=== PATIENT | female | born 1940 | race Caucasian/White ===

== ENCOUNTER 2024-12-24 09:44 | Outpatient (REF) | payer OTHER, SELFPAY ==
--- NOTE | ~2024-12-24 | US_ITS ---
EXAMINATION: BILATERAL CAROTID ULTRASOUND WITH DOPPLER HISTORY: STROKE COMPARISON: There are no prior studies for comparison. TECHNIQUE: Real time and Color and Spectral doppler ultrasonography of the carotid and vertebral arteries was performed in multiple planes. FINDINGS: No significant plaque is seen on the right. There is a small amount of plaque involving the proximal left internal carotid artery. VERTEBRAL FLOW DIRECTION: Antegrade bilaterally. PEAK SYSTOLIC VELOCITIES (in cm/sec): RIGHT: CCA: Prox: 56 Dist: 69 ICA: Prox: 39 Mid: 51 Dist: 68 ICA/CCA Ratio: 0.99 ECA: 116 Peak ICA EDV: 16 LEFT: CCA: Prox: 62 Dist: 62 ICA: Prox: 54 Mid: 61 Dist: 69 ICA/CCA Ratio: 1.11 ECA: 98 Peak ICA EDV: 18 US/US carotid duplex BI IMPRESSION: Normal ultrasound of the right internal carotid artery. Findings consistent with 0-49% stenosis of the left internal carotid artery. Electronically signed by: William Simon MD 12/25/2024 02:01 PM [facility]
--- OUTSIDE RECORDS SUMMARY | 2024-12-24 11:10 | XMS_ITS | Clinical Summary ---
Author Organization [facility] Address [address] [place] [address] Phone Care Team Providers Care Clerk General Office Name Role Phone Jose Manuel Reyes MD Primary Care Provider Allergies Active Allergy Reactions Criticality Noted Date Comments Amoxicillin 09/01/2024 Azithromycin 09/01/2024 Penicillins 09/01/2024 Sulfa (Sulfonamide Antibiotics) Rash 08/21 Medications aspirin 81 mg EC tablet Take 1 tablet (81 mg total) by mouth 1 (one) time each day. Active amLODIPine (NORVASC) 2.5 mg tablet Take by mouth 1 (one) time each day. Active simvastatin (ZOCOR) 10 mg tablet Take 1 tablet (10 mg total) by mouth 1 (one) time each day. Active ASCORBIC ACID, VITAMIN C, ORAL Take by mouth. - Oral Active CRANBERRY ORAL Take by mouth 1 (one) time each day. Active cholecalciferol (VITAMIN D3) 10 mcg/mL (400 unit/mL) liquid Take by mouth 1 (one) time each day. Active polyethylene glycol (PEG) 17 gram/dose oral powder 17 g 1 (one) time each day. Active levothyroxine (SYNTHROID, LEVOTHROID) 88 mcg tablet Active nitrofurantoin (MACRODANTIN) 100 mg capsule Take by mouth 4 (four) times a day. Active Active Problems Problem Noted Date Diagnosed Date Malignant neoplasm of upper- outer quadrant of left breast in female, estrogen receptor positive 09/01/2024 Encounters Date Type Department Care Team Description 12/23/2024 Telephone Breast Care [address] [phone] Dwight De Los Santos MD 12/16/2024 Telephone Breast Care [address] [phone] Dwight De Los Santos MD 12/15/2024 Telephone Breast [address] [address] Dwight De Los Santos MD 11/17/2024 9:22 AM EST - 11/17/2024 11:59 PM EST Hospital Encounter [facility] Ultrasound [address] [place] [phone] Malignant neoplasm of upper-outer quadrant of left breast in female, estrogen receptor positive (CMS/HCC) Discharge Disposition: Home or Self Care 11/17/2024 8:25 AM EST - 11/17/2024 11:59 PM EST Hospital Encounter [facility] at [address] [phone] Malignant neoplasm of upper-outer quadrant of left breast in female, estrogen receptor positive (CMS/HCC) Discharge Disposition: Home or Self Care 10/08/2024 2:00 PM EST Office Visit Breast Care [address] [phone] Dwight De Los Santos MD Malignant neoplasm of upper-outer quadrant of left breast in female, estrogen receptor positive (CMS/HCC) (Primary Dx) from Last 3 Months Surgical History Surgery Date Site/Laterality Comments APPENDECTOMY PROCEDURE: OR APPENDEC INDICATED PURPOSE OTH MAJOR PX NOT SPX; COMMENT: laparotomy for ovarian torsion, incidental appendectomy OTHER SURGICAL HISTORY 07/11/2022 Left PROCEDURE: OR MASTECTOMY PARTIAL; COMMENT: Left breast magnetic seed partial mastectomy 07/11/22 BREAST BIOPSY 10/21/2023 - 10/20/2024 Left Medical History Medical History Date Comments Hypothyroidism DX:Hypothyroidis m Hypercholesteremia DX:Hyperchole steremia GERD (gastroesophageal reflux disease) DX:GERD (gastroesophageal reflux disease) Shingles (herpes zoster) polyneuropathy DX:Shingles (herpes zoster) polyneuropathy Breast cancer (CMS/HCC) 06/2022 Family History Medical History Relation Name Comments Breast cancer Paternal Grandmother Relation Name Status Comments Paternal Grandmother Social History Tobacco Use Types Packs/Day Years Used Date Smoking Tobacco: Never Smokeless Tobacco: Never Comments No Sex and Gender Information Value Date Recorded Sex Assigned at Female 11/13/2024 2:50 PM EST Legal Sex Female 11:56 AM EST Gender Identity Female 11/13/2024 2:50 PM EST Sexual Orientation Not on file Obstetrics History Para Term AB IAB SAB Ectopic Multiple Livin g Live Births 2 Last Filed Vital Signs Vital Sign Reading Time Taken Comments Blood Pressure 140/75 10/08/2024 2:07 PM EST Pulse 71 10/08/2024 2:07 PM EST Temperature 36.1 ??C (97 ??F) 10/08/2024 2:07 PM EST Respiratory Rate - - Oxygen Saturation - - Inhaled Oxygen Concentration - - Weight 59.9 kg (132 lb) 11/17/2024 8:37 AM EST Height 154.9 cm (5' 1 ) 11/17/2024 8:37 AM EST Body Mass Index 24.94 11/17/2024 8:37 AM EST Plan of Treatment Upcoming Encounters Date Type Department Care Team (Late st Contact Info) Description 02/16/2025 8:00 AM EDT Appointment [facility] Ultrasound [address] [place] [address] 02/16/2025 8:30 AM EDT Appointment [facility] at [address] [phone] 04/08/2025 8:20 AM EDT Office Visit Breast Care [facility] [address] [place] [address] Dwight De Los Santos MD [address] [facility] [address] [place] [address] Health Maintenance Due Date Last Done Comments DTaP,Tdap,and Td Vaccines (1 - Tdap) 1961 Pneumococcal Vaccine: 50+ Years (1 of 2 - PCV) 1961 Zoster Vaccines (1 of 2) 1961 RSV Immunization Patients 60+ Years Old (1 - 1-dose 75+ series) 2017 Cholesterol Screening (Lipid Panel) 09/29/2022 Depression Screening 09/29/2022 Falls Risk Assessment 09/29/2022 Medicare Annual Wellness Visit 09/29/2022 Social Influencers of Health Screening 09/29/2022 Hypertension/CHF/CAD Annual BMP Blood Test 11/24/2023 Osteoporosis Screening (Bone Density Screening) 08/23/2032 08/23/2022, 03/07/2018 COVID-19 Vaccine Completed 2024, , 10/10/2021, Additional history exists Influenza Vaccine Completed 2024, , 08/07/2022 HIB Vaccines Aged Out No longer eligi ble based on patient's age to complete this topic HPV Vaccines Aged Out No longer eligi ble based on patient's age to complete this topic Hepatitis A Vaccines Aged Out No long er eligible based on patient's age to complete this topic Hepatitis B Vaccines Aged Out No long er eligible based on patient's age to complete this topic IPV Vaccines Aged Out No longer eligi ble based on patient's age to complete this topic MMR Vaccines Aged Out No longer eligi ble based on patient's age to complete this topic Meningococcal ACWY Vaccine Aged Out N o longer eligible based on patient's age to complete this topic Meningococcal B Vacine Aged Out No lo nger eligible based on patient's age to complete this topic RSV Immunization Patients Under 20 months Aged Out No longer eligible based on patient's age to complete this topic Varicella Vaccines Aged Out No longer eligible based on patient's age to complete this topic Procedures Procedure Name Priority Date/Time Associated Diagnosis Comments MG MAMMO DIGITAL DIAGNOSTIC W BOLIVAR BILAT Routine 11/17/2024 10:10 AM EST Malignant neoplasm of upper-outer quadrant of left breast in female, estrogen receptor positive (CMS/HCC) US BREAST LIMITED LEFT Routine 11/17/2024 10:07 AM EST Malignant neoplasm of upper-outer quadrant of left breast in female, estrogen receptor positive (CMS/HCC) [facility] DEXA AXIAL SKELETON Routine 08/23/2022 12:05 PM EDT Encounter for screening for osteoporosis from Last 3 Months or Most Recently Relevant to Health Maintenance Results * MG Mammo Digital Diagnostic w Bolivar bilat (11/17/2024 10:10 AM EST) Anatomical Region Laterality Modality Breast Bilateral Mammography 11/17/2024 10:0 6 AM EST Impressions 11/17/2024 10:16 AM EST Challenging mammogram with heterogeneous tissue and evidence of previous biopsy and surgery. ?? Abnormal ultrasound in the 12 o'clock position 4 cm from the left nipple. 0.6 cm irregular hypoechoic area of altered echotexture which attenuates sound. ??This area is tender and is more conspicuous than images obtained at the time of previous biopsy. This may or may not correlate to the previous biopsy site. I reviewed the findings and possible management options with the patient. ??We discussed ultrasound-guided biopsy and follow-up imaging in 3 months. ??The patient desires short interval follow-up imaging in 3 months. ??I advised the patient there will be a low threshold for biopsy if there is any suspicious change. A negative mammogram in the presence of a clinically suspicious palpable abnormality does not preclude the possibility of malignancy or alter the indications for biopsy. ASSESSMENT: ?? BI-RADS 3: PROBABLY BENIGN RECOMMENDATION(S): 1: Follow-up diagnostic mammogram and targeted ultrasound of the left breast in 3 months. It is possible that the sonographic finding represents increased conspicuity following biopsy. ??However, the patient reports a change in the clinical breast exam over the previous few weeks. -------- FINAL REPORT -------- Dictated By: Michael Prado Dictated Date: 11/17/2024 10:06 ET Assigned Physician: Michael Prado Reviewed and Electronically Signed By: Michael Prado Signed Date: 11/17/2024 10:16 ET Workstation ID: [id number] Transcribed By: Self Edit Transcribed Date: 11/17/2024 10:06 ET Narrative 11/17/2024 10:16 AM EST EXAM: ??DIAGNOSTIC MAMMOGRAPHY, BILATERAL ULTRASOUND: DIAGNOSTIC ULTRASOUND, UNILATERAL LEFT HISTORY: ??Abnormal clinical breast exam. ??Painful lump 12 o'clock position 4 cm from left nipple. Personal history of left breast cancer post lumpectomy June 2022. The patient describes new onset of pain. ??The patient reports tenderness to palpation by the provider in the 12 o'clock region. The patient underwent ultrasound-guided left breast biopsy with ribbon-shaped biopsy site marker placement which yielded benign results. COMPARISON: ??03/17/2024, 08/08/2023, 02/06/2023, 07/09/2022, 06/18/2022, 06/07/2022, 06/04/2022, 06/02/2021 TECHNIQUE: Synthesized CC and MLO projections of each breast. ??Tomosynthesis of each breast in the CC and MLO projections. ADDITIONAL IMAGING: Craniocaudal view of the left breast exaggerated toward the axilla using Tomosynthesis High-frequency linear transducer ultrasound of the left breast targeted to the area of clinical concern. Computer-aided detection was employed with the iCAD ??profound AI 3-D. TISSUE DENSITY: The breasts are heterogeneously dense, which may obscure small masses. (BI-RADS category C) FINDINGS: MAMMOGRAPHY: RIGHT BREAST: No suspicious mass. No suspicious calcification. No distortion. ?? There are diffuse coarse, round and vascular calcifications. LEFT BREAST: Postoperative changes consistent with previous lumpectomy. ??There are surgical clips in the axilla. ??There is a ribbon-shaped biopsy site marker in the 11 o'clock position. ??There is no suspicious mammographic change in the region of the 11 o'clock biopsy site marker. There are diffuse round, dystrophic and vascular calcifications. ULTRASOUND: LEFT BREAST The patient has tenderness. ??The patient was unable to localize a palpable lump. The patient was examined in the oblique, supine and upright positions. There is an irregular hypoechoic area of altered echotexture which attenuates sound in the 12 o'clock position 4 cm from the left nipple. ??This area was carefully examined. ??The finding is relatively reproducible. ??In some planes there is a suggestion of a linear bright reflector which may correspond to a biopsy site marker. ??When directly compared to images at the time of previous biopsy the finding is more conspicuous/larger Currently the finding measures approximately 0.6 cm. ??There is no abnormal color signal. Procedure Note Michael Prado MD - 11/17/2024 EXAM: DIAGNOSTIC MAMMOGRAPHY, BILATERAL ULTRASOUND: DIAGNOSTIC ULTRASOUND, UNILATERAL LEFT HISTORY: Abnormal clinical breast exam. Painful lump 12 o'clock position4 cm from left nipple. Personal history of left breast cancer post lumpectomy June 2022. The patient describes new onset of pain. The patient reports tendernessto palpation by the provider in the 12 o'clock region. The patient underwent ultrasound-guided left breast biopsy withribbon-shaped biopsy site marker placement which yielded benign results. COMPARISON: 03/17/2024, 08/08/2023, 02/06/2023, 07/09/2022, 06/18/2022,06/07/2022, 06/04/2022, 06/02/2021 TECHNIQUE: Synthesized CC and MLO projections of each breast.Tomosynthesis of each breast in the CC and MLO projections. ADDITIONAL IMAGING: Craniocaudal view of the left breast exaggeratedtoward the axilla using Tomosynthesis High-frequency linear transducer ultrasound of the left breast targeted tothe area of clinical concern. Computer-aided detection was employed with the [employer] 3-D. TISSUE DENSITY: The breasts are heterogeneously dense, which may obscuresmall masses. (BI-RADS category C) FINDINGS: MAMMOGRAPHY: RIGHT BREAST: No suspicious mass. No suspicious calcification. No distortion. Thereare diffuse coarse, round and vascular calcifications. LEFT BREAST: Postoperative changes consistent with previous lumpectomy. There aresurgical clips in the axilla. There is a ribbon-shaped biopsy site markerin the 11 o'clock position. There is no suspicious mammographic change inthe region of the 11 o'clock biopsy site marker. There are diffuse round, dystrophic and vascular calcifications. ULTRASOUND: LEFT BREAST The patient has tenderness. The patient was unable to localize a palpablelump. The patient was examined in the oblique, supine and upright positions. There is an irregular hypoechoic area of altered echotexture whichattenuates sound in the 12 o'clock position 4 cm from the left nipple.This area was carefully examined. The finding is relatively reproducible.In some planes there is a suggestion of a linear bright reflector whichmay correspond to a biopsy site marker. When directly compared to imagesat the time of previous biopsy the finding is more conspicuous/larger Currently the finding measures approximately 0.6 cm. There is no abnormalcolor signal. IMPRESSION: Challenging mammogram with heterogeneous tissue and evidence of previousbiopsy and surgery. Abnormal ultrasound in the 12 o'clock position 4 cm from the leftnipple. 0.6 cm irregular hypoechoic area of altered echotexture which attenuatessound. This area is tender and is more conspicuous than images obtainedat the time of previous biopsy. This may or may not correlate to the previous biopsy site. I reviewed the findings and possible management options with the patient.We discussed ultrasound-guided biopsy and follow-up imaging in 3 months.The patient desires short interval follow-up imaging in 3 months. Iadvised the patient there will be a low threshold for biopsy if there isany suspicious change. A negative mammogram in the presence of a clinically suspicious palpableabnormality does not preclude the possibility of malignancy or alter theindications for biopsy. ASSESSMENT: BI-RADS 3: PROBABLY BENIGN RECOMMENDATION(S): 1: Follow-up diagnostic mammogram and targeted ultrasound of the leftbreast in 3 months. It is possible that the sonographic finding represents increasedconspicuity following biopsy. However, the patient reports a change inthe clinical breast exam over the previous few weeks. -------- FINAL REPORT -------- Dictated By: Michael Prado Dictated Date: 11/17/2024 10:06 ET Assigned Physician: Michael Prado Reviewed and Electronically Signed By: Michael Prdao Signed Date: 11/17/2024 10:16 ET Workstation ID: [id number] Transcribed By: Self Edit Transcribed Date: 11/17/2024 10:06 ET us Dwight De Los Santos MD IMG BI PROCEDURES Final Result * US Breast Limited Left (11/17/2024 10:07 AM EST) Anatomical Region Laterality Modality Breast Left Ultrasound 11/17/2024 10:0 6 AM EST Impressions 11/17/2024 10:16 AM EST Challenging mammogram with heterogeneous tissue and evidence of previous biopsy and surgery. ?? Abnormal ultrasound in the 12 o'clock position 4 cm from the left nipple. 0.6 cm irregular hypoechoic area of altered echotexture which attenuates sound. ??This area is tender and is more conspicuous than images obtained at the time of previous biopsy. This may or may not correlate to the previous biopsy site. I reviewed the findings and possible management options with the patient. ??We discussed ultrasound-guided biopsy and follow-up imaging in 3 months. ??The patient desires short interval follow-up imaging in 3 months. ??I advised the patient there will be a low threshold for biopsy if there is any suspicious change. A negative mammogram in the presence of a clinically suspicious palpable abnormality does not preclude the possibility of malignancy or alter the indications for biopsy. ASSESSMENT: ?? BI-RADS 3: PROBABLY BENIGN RECOMMENDATION(S): 1: Follow-up diagnostic mammogram and targeted ultrasound of the left breast in 3 months. It is possible that the sonographic finding represents increased conspicuity following biopsy. ??However, the patient reports a change in the clinical breast exam over the previous few weeks. -------- FINAL REPORT -------- Dictated By: Michael Prado Dictated Date: 11/17/2024 10:06 ET Assigned Physician: Michael Prado Reviewed and Electronically Signed By: Michael Prado Signed Date: 11/17/2024 10:16 ET Workstation ID: [id number] Transcribed By: Self Edit Transcribed Date: 11/17/2024 10:06 ET Narrative 11/17/2024 10:16 AM EST EXAM: ??DIAGNOSTIC MAMMOGRAPHY, BILATERAL ULTRASOUND: DIAGNOSTIC ULTRASOUND, UNILATERAL LEFT HISTORY: ??Abnormal clinical breast exam. ??Painful lump 12 o'clock position 4 cm from left nipple. Personal history of left breast cancer post lumpectomy June 2022. The patient describes new onset of pain. ??The patient reports tenderness to palpation by the provider in the 12 o'clock region. The patient underwent ultrasound-guided left breast biopsy with ribbon-shaped biopsy site marker placement which yielded benign results. COMPARISON: ??03/17/2024, 08/08/2023, 02/06/2023, 07/09/2022, 06/18/2022, 06/07/2022, 06/04/2022, 06/02/2021 TECHNIQUE: Synthesized CC and MLO projections of each breast. ??Tomosynthesis of each breast in the CC and MLO projections. ADDITIONAL IMAGING: Craniocaudal view of the left breast exaggerated toward the axilla using Tomosynthesis High-frequency linear transducer ultrasound of the left breast targeted to the area of clinical concern. Computer-aided detection was employed with the iCAD ??profound AI 3-D. TISSUE DENSITY: The breasts are heterogeneously dense, which may obscure small masses. (BI-RADS category C) FINDINGS: MAMMOGRAPHY: RIGHT BREAST: No suspicious mass. No suspicious calcification. No distortion. ?? There are diffuse coarse, round and vascular calcifications. LEFT BREAST: Postoperative changes consistent with previous lumpectomy. ??There are surgical clips in the axilla. ??There is a ribbon-shaped biopsy site marker in the 11 o'clock position. ??There is no suspicious mammographic change in the region of the 11 o'clock biopsy site marker. There are diffuse round, dystrophic and vascular calcifications. ULTRASOUND: LEFT BREAST The patient has tenderness. ??The patient was unable to localize a palpable lump. The patient was examined in the oblique, supine and upright positions. There is an irregular hypoechoic area of altered echotexture which attenuates sound in the 12 o'clock position 4 cm from the left nipple. ??This area was carefully examined. ??The finding is relatively reproducible. ??In some planes there is a suggestion of a linear bright reflector which may correspond to a biopsy site marker. ??When directly compared to images at the time of previous biopsy the finding is more conspicuous/larger Currently the finding measures approximately 0.6 cm. ??There is no abnormal color signal. Procedure Note Michael Prado MD - 11/17/2024 EXAM: DIAGNOSTIC MAMMOGRAPHY, BILATERAL ULTRASOUND: DIAGNOSTIC ULTRASOUND, UNILATERAL LEFT HISTORY: Abnormal clinical breast exam. Painful lump 12 o'clock position4 cm from left nipple. Personal history of left breast cancer post lumpectomy June 2022. The patient describes new onset of pain. The patient reports tendernessto palpation by the provider in the 12 o'clock region. The patient underwent ultrasound-guided left breast biopsy withribbon-shaped biopsy site marker placement which yielded benign results. COMPARISON: 03/17/2024, 08/08/2023, 02/06/2023, 07/09/2022, 06/18/2022,06/07/2022, 06/04/2022, 06/02/2021 TECHNIQUE: Synthesized CC and MLO projections of each breast.Tomosynthesis of each breast in the CC and MLO projections. ADDITIONAL IMAGING: Craniocaudal view of the left breast exaggeratedtoward the axilla using Tomosynthesis High-frequency linear transducer ultrasound of the left breast targeted tothe area of clinical concern. Computer-aided detection was employed with the [employer] 3-D. TISSUE DENSITY: The breasts are heterogeneously dense, which may obscuresmall masses. (BI-RADS category C) FINDINGS: MAMMOGRAPHY: RIGHT BREAST: No suspicious mass. No suspicious calcification. No distortion. Thereare diffuse coarse, round and vascular calcifications. LEFT BREAST: Postoperative changes consistent with previous lumpectomy. There aresurgical clips in the axilla. There is a ribbon-shaped biopsy site markerin the 11 o'clock position. There is no suspicious mammographic change inthe region of the 11 o'clock biopsy site marker. There are diffuse round, dystrophic and vascular calcifications. ULTRASOUND: LEFT BREAST The patient has tenderness. The patient was unable to localize a palpablelump. The patient was examined in the oblique, supine and upright positions. There is an irregular hypoechoic area of altered echotexture whichattenuates sound in the 12 o'clock position 4 cm from the left nipple.This area was carefully examined. The finding is relatively reproducible.In some planes there is a suggestion of a linear bright reflector whichmay correspond to a biopsy site marker. When directly compared to imagesat the time of previous biopsy the finding is more conspicuous/larger Currently the finding measures approximately 0.6 cm. There is no abnormalcolor signal. IMPRESSION: Challenging mammogram with heterogeneous tissue and evidence of previousbiopsy and surgery. Abnormal ultrasound in the 12 o'clock position 4 cm from the leftnipple. 0.6 cm irregular hypoechoic area of altered echotexture which attenuatessound. This area is tender and is more conspicuous than images obtainedat the time of previous biopsy. This may or may not correlate to the previous biopsy site. I reviewed the findings and possible management options with the patient.We discussed ultrasound-guided biopsy and follow-up imaging in 3 months.The patient desires short interval follow-up imaging in 3 months. Iadvised the patient there will be a low threshold for biopsy if there isany suspicious change. A negative mammogram in the presence of a clinically suspicious palpableabnormality does not preclude the possibility of malignancy or alter theindications for biopsy. ASSESSMENT: BI-RADS 3: PROBABLY BENIGN RECOMMENDATION(S): 1: Follow-up diagnostic mammogram and targeted ultrasound of the leftbreast in 3 months. It is possible that the sonographic finding represents increasedconspicuity following biopsy. However, the patient reports a change inthe clinical breast exam over the previous few weeks. -------- FINAL REPORT -------- Dictated By: Michael Prado Dictated Date: 11/17/2024 10:06 ET Assigned Physician: Michael Prado Reviewed and Electronically Signed By: Michael Prado Signed Date: 11/17/2024 10:16 ET Workstation ID: [id number] Transcribed By: Self Edit Transcribed Date: 11/17/2024 10:06 ET us Dwight De Los Santos MD IMG US PROCEDURES Final Result * LISAN[facility]O DEXA AXIAL SKELETON (08/23/2022 12:05 PM EDT) Anatomical Region Laterality Modality Mammography 08/23/2022 11:0 3 AM EDT Narrative 08/23/2022 12:[address] [facility] Diagnostic Imaging Department [address] [place], [place] [id number] Patient: ??KALLIEJACKIE Eldridge ?/Age/Sex: 1940 - Unit#: ??[id number] ? Location/Status: ??SPDIMAM/REG CLI ? Mnemonic/Ordering Site: ??MAMDEXAAX/SPMAM Ordering Physician: ??TIM WALLACE MD Lisandro Dexa Axial Skeleton - 08/23/22 - 1145 HISTORY: ??The patient is a 81-year-old postmenopausal female with clinical concern for metabolic bone disease. FINDINGS: ??Dual energy x-ray absorptiometry of the lumbar spine and femurs is performed. The mean bone mineral density at L1-2 is 1.024 gm/cm2 which is 88% of that of young normals and 111% of that of age matched controls. This yields a T- score of -1.2 and a Z-score of 0.9 which is diagnostic of osteopenia. The mean bone mineral density of the femurs bilaterally is 0.890 gm/cm2 which is 88% of that of young normals and 121% of that of age matched controls. ??This yields a T-score of -0.9 and a Z-score of 1.2 and there is therefore no evidence of osteoporosis or osteopenia here. ??However, the T-score of the right femoral neck is -1.8 and that of the left femoral neck is -1.8 which is diagnostic of osteopenia. IMPRESSION: 1. Osteopenia. ??There has been an increase of 4.3% in bone mineral density in the lumbar spine since the prior examination of 03/07/2018. ??There has been an increase of 0.6% in bone mineral density in the right femur and a decrease of 3.3% in bone mineral density in the left femur. 2. FRAX analysis yields a 10-year probability of major osteoporotic fracture of 14.9% and a 10-year probability of hip fracture of 4.0%. Code 80729 Dictating Physician: ??DONELL VILLATORO MD Electronically Signed by: ??DONELL VILLATORO MD Dic Date/Time: ??08/23/22 1202 Sign date/Time: ??08/23/22 1205 Procedure Note Donell Villatoro MD - 11/22/2023 [facility] Diagnostic Imaging Department [address] [place] [address] Patient: JACKIE NAVA Jazmyn Barr/Age/Sex: 1940 - 81 - F Unit#: [id number] Location/Status: SPDIMAM/REG CLI Mnemonic[facility] Ordering Physician: TIM WALLACE MD Lisandro Dexa Axial Skeleton - 08/23/221144 HISTORY: The patient is a 81-year-old postmenopausal female withclinical concern for metabolic bone disease. FINDINGS: Dual energy x-ray absorptiometry of the lumbar spine and femursis performed. The mean bone mineral density at L1-2 is 1.024 gm/cm2 which is88% of that of young normals and 111% of that of age matched controls. Thisyields a T- score of -1.2 and a Z-score of 0.9 which is diagnostic of osteopenia. The mean bone mineral density of the femurs bilaterally is 0.890 gm/jk9vhwuz is 88% of that of young normals and 121% of that of age matched controls.This yields a T-score of -0.9 and a Z-score of 1.2 and there is therefore noevidence of osteoporosis or osteopenia here. However, the T-score of the rightfemoral neck is -1.8 and that of the left femoral neck is -1.8 which is diagnosticof osteopenia. IMPRESSION: 1. Osteopenia. There has been an increase of 4.3% in bone mineral densityin the lumbar spine since the prior examination of 03/07/2018. There has beenan increase of 0.6% in bone mineral density in the right femur and a decreaseof 3.3% in bone mineral density in the left femur. 2. FRAX analysis yields a 10-year probability of major osteoporoticfracture of 14.9% and a 10-year probability of hip fracture of 4.0%. Code 16956 Dictating Physician: DONELL VILLATORO MD Electronically Signed by: DONELL VILLATORO MD Dic Date/Time: 08/23/22 1202 Sign date/Time: 08/23/22 1205 Subramony Howie JOE IMG BI PROCEDURES F inal Result from Last 3 Months or Most Recently Relevant to Health Maintenance [place] [place] [address] [employer] MEDICARE Advance Directives Documents on File Type Date Recorded Patient Solutions Sales Consultant Expl anation Health Care Decision (hx) 07/12/2022 AD GONGORA DIRECTIVE Health Care Decision (hx) 07/12/2022 AD GONGORA DIRECTIVE Health Care Decision (hx) 07/12/2022 AD GONGORA DIRECTIVE Health Care Decision (hx) 07/12/2022 AD GONGORA DIRECTIVE Health Care Decision (hx) 07/12/2022 AD GONGORA DIRECTIVE Health Care Decision (hx) 07/12/2022 AD GONGORA DIRECTIVE Health Care Decision (hx) 07/12/2022 AD GONGORA DIRECTIVE Health Care Decision (hx) 07/12/2022 AD GONGORA DIRECTIVE Health Care Decision (hx) 07/12/2022 AD GONGORA DIRECTIVE Health Care Decision (hx) 07/12/2022 AD GONGORA DIRECTIVE Health Care Decision (hx) 07/12/2022 AD GONGORA DIRECTIVE Health Care Decision (hx) 07/12/2022 AD GONGORA DIRECTIVE Health Care Decision (hx) 07/12/2022 AD GONGORA DIRECTIVE Care Teams Clerk General Office Relationship Specialty Start Date End Date Jose Manuel Reyes MD [address] [place] [address] Dr [address] [place] [address] PCP - General Clearing Tub Worker 07/06/22
--- OUTSIDE RECORDS SUMMARY | 2024-12-24 11:10 | XMS_ITS | Encounter Summary ---
Author Organization [facility] Address [address] [place] [address] Care Team Providers Care Legal Document Specialist Name Role Phone Jose Manuel Reyes MD Primary Care Provider Encounter Details Date Type Department Care Team (Late Contact Info) Description 12/15/2024 Telephone Breast Care [address] [phone] Dwight De Los Santos MD [address] [place] [address] Social History Tobacco Use Types Packs/Day Years Used Date Smoking Tobacco: Never Smokeless Tobacco: Never Comments No Sex and Gender Information Value Date Recorded Sex Assigned at Female 11/13/2024 2:50 PM EST Legal Sex Female 11:56 AM EST Gender Identity Female 11/13/2024 2:50 PM EST Sexual Orientation Not on file documented as of this encounter Plan of Treatment Upcoming Encounters Date Type Department Care Team (Late Contact Info) Description 02/16/2025 8:00 AM EDT Appointment [facility] Ultrasound [address] [place] [phone] 02/16/2025 8:30 AM EDT [facility]ointment [facility] [address] [place] [address] [phone] 04/08/2025 8:20 AM EDT Office Visit Breast [address] [phone] Dwight De Los Santos MD [address] [place] [address] [address] [place] [address] documented as of this encounter Visit Diagnoses Not on filedocumented in this encounter Care Teams Legal Document Specialist Relationship Specialty Start Date End Date Jose Manuel Reyes MD [address] [place] [address] [address] [place] [address] PCP - General Child Support Agent 07/06/22 documented as of this encounter
--- OUTSIDE RECORDS SUMMARY | 2024-12-24 11:10 | XMS_ITS | Clinical Summary ---
Author Organization [facility] Address [address] [place] [address] Care Team Providers Care Bobbin Cleaner Hand Name Role Phone Jose Manuel Reyes MD Primary Care Provider [phone] Allergies Active Allergy Reactions Criticality Noted Date Comments Amoxicillin 07/26/2022 Codeine 07/26/2022 Sulfa Antibiotics 07/26/2022 Medications Medication Sig Dispensed Refills Start Date End Date Status simvastatin (ZOCOR) tablet 10 mg Take 1 tablet (10 mg total) by mouth daily. as directed 0 05/09/2022 Active levothyroxine (SYNTHROID) tablet 88 mcg 0 12/28/2016 Active amLODIPine (NORVASC) tablet 2.5 mg Take 1 tablet (2.5 mg total) by mouth daily. 0 Active atorvastatin (LIPITOR) tablet 80 mg Take 1 tablet (80 mg total) by mouth daily. 0 Active aspirin EC 81 MG tablet Take 1 tablet (81 mg total) by mouth daily. 0 Active Active Problems Problem Noted Date Diagnosed Date Thalamic stroke 01/31/2023 Hypercholesterolemia 01/31/2023 Essential hypertension 01/31/2023 Osteopenia of multiple sites 07/27/2022 Malignant neoplasm of upper- outer quadrant of left breast in female, estrogen receptor positive 06/26/2022 Family History Medical History Relation Name Comments Stroke Father Cancer Paternal Grandmother breast Relation Name Status Comments Father Paternal Grandmother Social History Tobacco Use Types Packs/Day Years Used Date Smoking Tobacco: Never Smokeless Tobacco: Never Alcohol Use Standard Drinks/Week Comments Yes 1 (1 standard drink = 0.6 oz pur e alcohol) Sex and Gender Information Value Date Recorded Sex Assigned at Female 07/17/2022 9:48 AM EDT Gender Identity Not on file Sexual Orientation Not on file Job Start Date Occupation Industry Not on file Not on file Not on file Last Filed Vital Signs Vital Sign Reading Time Taken Comments Blood Pressure 138/63 01/31/2023 9:00 AM EDT Pulse 74 01/31/2023 9:00 AM EDT Temperature 37.2 ??C (99 ??F) 01/31/2023 9:00 AM EDT Respiratory Rate - - Oxygen Saturation 100% 01/31/2023 9:00 AM EDT Inhaled Oxygen Concentration - - Weight 60.9 kg (134 lb 3.2 oz) 01/31/2023 9:00 A M EDT Height 154.9 cm (5' 1 ) 01/31/2023 9:00 AM EDT Body Mass Index 25.36 01/31/2023 9:00 AM EDT Plan of Treatment Health Maintenance Due Date Last Done Comments COVID-19 Vaccine (#1) 1945 Pneumococcal Vaccine (1 of 2 - PCV) 1948 Depression Screening 1954 Preventative Health Evaluation 1960 DTap / Tdap / Td (1 - Tdap) 1961 Shingrix-Zoster Vaccine (1 of 2) 1961 Fall Risk Assessment 2007 Osteoporosis Screening (DEXA Scan) 2007 RSV Adult > 60+ Yrs or Pregn ant (1 - 1-dose 75+ series) 2017 Influenza Vaccine (#1) 2024 Hepatitis B Vaccines Aged Out No long er eligible based on patient's age to complete this topic RSV Ped < 20 months Aged Out No longe r eligible based on patient's age to complete this topic Care Teams Bobbin Cleaner Hand Relationship Specialty Start Date End Date Jose Manuel Reyes MD [address] [place] [address] DR MARTIN [address] [place] [address] PCP - General Accounting Technician 07/06/22
--- OUTSIDE RECORDS SUMMARY | 2024-12-24 11:10 | XMS_ITS | Continuity of Care Document ---
Author Organization [facility] Address [address] [place] [address] Phone [phone] Care Team Providers Care Residential Door Unit Installer Name Role Phone Jose Manuel Reyes M.D. Care Team Information Rece iver [phone] Fareed Figueroa Care Team Information Receive r [phone] Problems Active Problems Provider Date Osteoarthritis Jose Manuel Reyes M.D. Onset: 12/2021 Hypothyroidism Jose Manuel Reyes M.D. Onset: 12/2021 Irritable bowel syndrome Jose Manuel Reyes M.D. O nset: 07/23/2022 Hypercholesterolemia Jose Manuel Reyes M.D. Onset : 07/23/2022 Carcinoma of breast Jose Manuel Reyes M.D. 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 Onset: 07/23/2022 Dizziness Jose Manuel Reyes M.D. Onset: Essential hypertension Jose Manuel Reyes M.D. Ons et: 11/05/2022 Cerebrovascular accident Jose Manuel Reyes M.D. O nset: 03/07/2023 Social History Type Date Description Comments Sex Unknown Lives With Alone ETOH Use Occasionally consumes alcoho l Tobacco Use Start: Unknown Patient has never smoked Smoking Status Reviewed: 08/09/23 Patient has never sm oked Allergies and adverse reactions Active Allergies Criticality Reaction Severity Comments Date Codeine Unable to assess criticality 03/07/2023 Sulfamethoxazole Unable to assess criticality 03/07/2023 Amoxicillin Unable to assess criticality 03/07/2023 Medications Active Medications SIG Qnty Indications Order ing Provider Date Atorvastatin [id number] Tablets 1 tab by mouth every day 90jayson Loco M.D. 07/30/[address] 1 by mouth every day Jose Manuel Reyes M.D. 03/07/2023 Amlodipine Besylate2.5mg Tablets Take 1 Tablet By Mouth Every Day 90jayson Reyes M.D. 01/30/2023 Levothyroxine [id number] Tablets Take 1 Tablet By Mouth Every Day as Directed 90jayson Reyes M.D. [id number] Capsules 1 by mouth every day Unknown Vital Signs Date Vital Result Comment 07/06/2024 3:28pm BP Systolic 130 mmHg BP Diastolic 80 mmHg Heart Rate 76 /min Height 62 inches 5'2 Weight 131.50 lb BMI (Body Mass Index) 24.0 kg/m2 Results Test Acquired Date Facility Test Result H/L Range Note Laboratory test finding 08/03/2024 [facility] Ast (Sgot) 36 IU/L 0-40 Alt (SGPT) 31 IU/L 0-32 Lipid Panel 08/03/2024 [facility] Cholesterol, Total 172 mg/dL 100-199 Triglycerides 138 mg/dL 0-149 HDL Cholesterol 48 mg/dL >39 VLDL Cholestero l Tucker 24 mg/dL 5-40 LDL Chol Calc (Nih) 100 mg/dL High 0-99 LDL Calc Comment: TNP Laboratory test finding 08/03/2024 [facility] TSH 2.560 uIU/mL 0.450-4 .500 Thyroxine (T4) Free, Direct 1.81 ng/dL High 0.82-1. 77 Comp. Metabolic Panel (14) 01/29/2024 [facility] Glucose 104 mg/dL High 70-99 BUN 15 mg/dL 8-27 Creatinine 0.84 mg/dL 0.57-1. 00 eGFR 70 mL/min/1. 73 >59 BUN/Creatinine Ratio 18 12-28 Sodium 138 mmol/L 134-144 Potassium 4.6 mmol/L 3.5-5.2 Chloride 101 mmol/L 96-106 Carbon Dioxide, Total 24 mmol/L 20-29 Calcium 8.8 mg/dL 8.7-10. 3 Protein, Total 6.3 g/dL 6.0-8.5 Albumin 4.0 g/dL 3.7-4.7 Globulin, Total 2.3 g/dL 1.5-4.5 A/G Ratio 1.7 1.2-2.2 Bilirubin, Total 0.6 mg/dL 0.0-1 .2 Alkaline Phosphatase 87 IU/L 44-121 Ast (Sgot) 54 IU/L High 0-40 Alt (SGPT) 56 IU/L High 0-32 Lipid Panel 01/29/2024 [facility] Cholesterol, Total 159 mg/dL 100-199 Triglycerides 115 mg/dL 0-149 HDL Cholesterol 49 mg/dL >39 VLDL Cholestero l Tucker 21 mg/dL 5-40 LDL Chol Calc (Nih) 89 mg/dL 0-99 Comment: TNP CBC With Differential/Per telet 01/29/2024 [facility] WBC 8.1 x10E3/uL 3.4-10. 8 RBC 4.69 x10E6/uL 3.77-5. 28 Hemoglobin 14.8 g/dL 11.1-15 .9 Hematocrit 44.1 % 34.0-46 .6 MCV 94 fL 79-97 MCH 31.6 pg 26.6-33 .0 MCHC 33.6 g/dL 31.5-35 .7 RDW 12.4 % 11.7-15 .4 Platelets 286 x10E3/uL 150-450 Neutrophils 56 % Not Estab. Lymphs 29 % Not Estab. Monocytes 8 % Not Estab. Eos 5 % Not Estab. Basos 1 % Not Estab. Immature Cells TNP Neutrophils (Absolute) 4.5 x10E3/uL 1.4-7.0 Lymphs (Absolute) 2.4 x10E3/uL 0.7-3.1 Monocytes(Absol u te) 0.7 x10E3/uL 0.1-0.9 Eos (Absolute) 0.4 x10E3/uL 0.0-0.4 Baso (Absolute) 0.1 x10E3/uL 0.0-0.2 Immature Granulocytes 1 % Not Estab. Immature Grans (Abs) 0.0 x10E3/uL 0.0-0.1 NRBC TNP Hematology Comments: TNP TSH+Free T4 01/29/2024 [facility] TSH 2.620 uIU/mL 0.450-4 .500 T4,Free(Direct) 1.94 ng/dL High 0.82-1. 77 Culture Urine 12/02/2023 [facility] Specimen Description CLEAN CATCH (URI <SEE NOTE> 1 Special Requests NONE Culture >100,000 COL/ML <SEE NOTE> Abnormal 2 Report Status FINAL 4 3 Comprehensive Metabolic Panl 07/25/2023 [facility] Glucose 107 mg/dL High (70-99) BUN 14 mg/dL (8-23) Creatinine 0.8 mg/dL (0.5-1. 0) Sodium 136 mmol/L (133-14 5) Potassium 4.4 mmol/L (3.6-5. 2) Chloride 101 mmol/L (98-107 ) Bicarbonate 27 mmol/L (22-29) Anion Gap 8 (4-17) Albumin 4.1 GM/DL (3.4-4. 8) Calcium 8.9 mg/dL (8.6-10 .5) Bilirubin,Total 0.7 mg/dL (0-1.2 ) Total Protein 6.4 GM/DL (6.2-8. 2) Ag Ratio 1.8 Ast 22 U/L (0-32) Alk Phos 100 U/L (35-104 ) Alt 17 U/L (0-33) Estimated GFR Creatinine 70 ML/MIN/1. 73M2 4 Lipid Panel 07/25/2023 [facility] Cholesterol, Total 147 mg/dL (<200) Triglyceride 108 mg/dL (<150) HDL Chol 47 mg/dL (>39) LDL Cholesterol , Calculated 78 mg/dL (0-130) Non HDL Cholesterol (Calc) 100 mg/dL (<160) Complete Abc With Diff 07/25/2023 [facility] WBC 8.3 K/MM3 (4.0-11 .0) RBC 4.33 M/MM3 (4.20-5 .40) HGB 13.5 GM/DL (11.7-1 5.5) HCT 41.6 % (35.7-4 5.8) MCV 96.1 FL (80.0-1 00.0) MCH 31.2 pg (27.0-3 4.0) MCHC 32.5 g/dL Low (33.0-3 7.0) PLT 257 K/MM3 (150-46 0) RDW-SD 45.6 FL (<47.0) MPV 11.0 FL (9.4-12 .4) Automated NRBC 0.0 #/100WBC' S Abs. NRBC 0.0 K/MM3 Neut # 4.9 K/MM3 (1.3-7. 0) Lymph # 2.1 K/MM3 (0.8-3. 1) Broome# 0.8 K/MM3 (0.4-0. 9) Eo # 0.5 K/MM3 High (0.0-0. 4) Baso # 0.1 K/MM3 (0.0-0. 1) Abs. Imm Gran 0.0 K/MM3 Neut 58.4 % (44-76) Lymph 24.9 % (15-43) Monocyte 9.4 % (4.5-10 .5) Eo 5.7 % (0-6) Baso 1.2 % (0-2) Imm Gran 0.4 % Laboratory test finding 07/25/2023 [facility] TSH With Reflex To FT4 2.13 uIU/mL (0.4-4. 2) Comprehensive Metabolic Panl 07/17/2022 [facility] Glucose 102 mg/dL High (70-99) BUN 16 mg/dL (8-23) Creatinine 0.9 mg/dL (0.5-1. 0) Sodium 139 mmol/L (133-14 5) Potassium 4.4 mmol/L (3.6-5. 2) Chloride 101 mmol/L (98-107 ) Bicarbonate 27 mmol/L (22-29) Anion Gap 11 (4-17) Albumin 4.2 GM/DL (3.4-4. 8) Calcium 9.0 mg/dL (8.6-10 .5) Bilirubin,Total 0.5 mg/dL (0-1.2 ) Total Protein 6.4 GM/DL (6.2-8. 2) Ag Ratio 1.9 Ast 14 U/L (0-32) Alk Phos 80 U/L (35-104 ) Alt 9 U/L (0-33) Estimated GFR Creatinine 69 ML/MIN/1. 73M2 5 Lipid Panel 07/17/2022 [facility] Cholesterol, Total 204 mg/dL High (<200) Triglyceride 143 mg/dL (<150) HDL Chol 53 mg/dL (>39) LDL Cholesterol , Calculated 122 mg/dL (0-130) Non HDL Cholesterol (Calc) 151 mg/dL (<160) Laboratory test finding 07/17/2022 [facility] TSH 3.91 uIU/mL (0.4-4. 2) 1 CLEAN CATCH (URINE) 2 the [employer] [address] system 3 ORGANISM >100,000 CO L/ML ESCHERICHIA COLI These AST results were performed on the [employer] 2 ID and AST system METHOD MIN. INHIB. CONC. (MCG/ML) AMPICILLIN SUSCEPTIBLE AMPICILLIN/SULBACTAM SUSCEPTIBLE CEFAZOLIN SUSCEPTIBLE CEFEPIME SUSCEPTIBLE CEFTRIAXONE SUSCEPTIBLE CIPROFLOXACIN RESISTANT ERTAPENEM SUSCEPTIBLE GENTAMICIN SUSCEPTIBLE LEVOFLOXACIN RESISTANT NITROFURANTOIN SUSCEPTIBLE PIPERACILLIN/TAZOBAC SUSCEPTIBLE TRIMETH/SULFAMETHOX SUSCEPTIBLE 4 Creatinine based est imated glomerular filtration (eGFR) in adults is calculated using the National [employer] recommended 2020 CKD-EPI equation. Estimates GFR from serum creatinine, age and sex. 5 Creatinine based est imated glomerular filtration (eGFR) in adults is calculated using the National [employer] recommended 2020 CKD-EPI equation. Estimates GFR from serum creatinine, age and sex. Medical Devices Description No Information Available Encounters Type Date Location Provider Dx Diagnosis Office Visit 07/06/2024 3:15p Main Office SUE Brenner E03.9 Hypothyroidis m, unspecified I10 Essential (primary) hypertension C50.912 Malignant neoplasm o f unspecified site of left female breast K58.9 Irritable bowel synd jin without diarrhea I63.9 Cerebral infarction, unspecified E78.00 Pure hypercholestero lemia, unspecified R94.5 Abnormal results of liver function studies Assessments Date Code Description Provider 07/06/2024 E03.9 Hypothyroidism, unspecified SUE Brenner 07/06/2024 I10 Essential (primary) hyperten jessica SUE Brenner 07/06/2024 C50.912 Carcinoma of breast SUE Diaz 07/06/2024 K58.9 Irritable bowel syndrome SUE Carrington 07/06/2024 I63.9 Cerebrovascular accident SUE Carrington 07/06/2024 E78.00 Hypercholesterolemia SUE Brenner 07/06/2024 R94.5 Abnormal results of liver fu nction studies SUE Brenner Plan of Treatment Future Appointment(s):* 01/12/2025 9:15 am - SUE Brenner at Main Office 07/06/2024 - SUE Brenner* E03.9 Hypothyroidism, unspecified * I10 Essential (primary) hypertension * C50.912 Carcinoma of breast * K58.9 Irritable bowel syndrome * I63.9 Cerebrovascular accident * E78.00 Hypercholesterolemia * R94.5 Abnormal results of liver function studies Functional Status Description No Information Available Mental Status Description No Information Available Referrals Refer to Reason for Referral Status Appt Reinier Lovell MD COLONOSCOPY DUE ON 09/06/2022 Rev iewed Complete 09/06/[address] [place] [address] [address] [place] [address] [phone]
--- OUTSIDE RECORDS SUMMARY | 2024-12-24 11:10 | XMS_ITS | Encounter Summary ---
Author Organization [facility] Address [address] [place] [address] Care Team Providers Care Infrastructure Administrator Name Role Phone Jose Manuel Reyes MD Primary Care Provider Encounter Details Date Type Department Care Team (Late st Contact Info) Description 12/16/2024 Telephone [facility] [place] [address] [place] [address] Dwight De Los Santos MD [address] [place], [place] [id number] Social History Tobacco Use Types Packs/Day Years Used Date Smoking Tobacco: Never Smokeless Tobacco: Never Comments No Sex and Gender Information Value Date Recorded Sex Assigned at Female 11/13/2024 2:50 PM EST Legal Sex Female 11:56 AM EST Gender Identity Female 11/13/2024 2:50 PM EST Sexual Orientation Not on file documented as of this encounter Progress Notes * Venkatesh Stone - 12/23/2024 3:18 PM EST Called patients PCP regarding an insurance referral to be back dated to a previous appointment where patient was charged a significant amount for appointment when should have been covered by insurance. * Venkatesh Stone - 12/16/2024 9:10 AM EST Spoke with patient PCP regarding an insurance referral for 10.08.24. will be attached to patients appointment once received. documented in this encounter Plan of Treatment Upcoming Encounters Date Type Department Care Team (Late st Contact Info) Description 02/16/2025 8:00 AM EDT Appointment [facility] Ultrasound [address] [place] [address] 02/16/2025 8:30 AM EDT Appointment [facility] [address] [place] [address] 04/08/2025 8:20 AM EDT Office Visit [facility] [address] [place] [address] Dwight De Los Santos MD [address] [place] [address] documented as of this encounter Visit Diagnoses Not on filedocumented in this encounter Care Teams Infrastructure Administrator Relationship Specialty Start Date End Date Jose Manuel Reyes MD [address] [place] [address] [address] [place] [address] PCP - General Fitter Type Bar And Segment 07/06/22 documented as of this encounter
--- OUTSIDE RECORDS SUMMARY | 2024-12-24 11:10 | XMS_ITS | Encounter Summary ---
Author Organization [facility] Address [address] [place] [address] Care Team Providers Care Printer Machine Name Role Phone Jose Manuel Reyes MD Primary Care Provider Encounter Details Date Type Department Care Team (Late Contact Info) Description 12/23/2024 Telephone Breast Care [address] [phone] Dwight De Los Santos MD [address] [place] [phone] Social History Tobacco Use Types Packs/Day Years [...] Info) Description 02/16/2025 8:00 AM EDT Appointment [facility] Ultrasound [address] [place] [phone] 02/16/2025 8:30 AM EDT [facility]ment [facility] [address] [phone] 04/08/2025 8:20 AM EDT Office Visit Breast [address] [phone] Dwight De Los Santos MD [address] [place] [address] [address] [place] [address] documented as of this encounter Visit Diagnoses Not on filedocumented in this encounter Care Teams Printer Machine Relationship Specialty Start Date End Date Jose Manuel Reyes MD [address] [place] [address] [address] [place] [address] PCP - General Precision Instrument And Tool Maker 07/06/22 documented as of this encounter
== END 2024-12-24 09:45 | disposition home or self-care (01) ==
LOC: HO.US 09:44
PROVIDERS: Visit Provider Registered Nurse
DX: I63.9 Cerebral infarction, unspecified (principal); I65.22 Occlusion and stenosis of left carotid artery
CPT/HCPCS: 93880

== ENCOUNTER → 2024-12-24 09:47 | Outpatient (BNV) | payer OTHER, SELFPAY | PROVIDERS: Visit Provider Radiology Diagnostic Radiology | DX: I63.9 Cerebral infarction, unspecified (principal) | CPT/HCPCS: 93880 ==

== ENCOUNTER 2025-03-30 07:28 | Outpatient (REF) | payer OTHER, SELFPAY ==
--- NOTE | ~2025-03-30 | CT_ITS ---
CLINICAL HISTORY: STROKE CT head without contrast Comparison: None Findings: No intra-axial mass, midline shift, hydrocephalus, or acute hemorrhage. Mild atrophy-like change or white matter disease. The visualized paranasal sinuses and mastoid air cells are normal. The orbits are unremarkable. There is no acute fracture. IMPRESSION: 1. No evidence of acute territorial infarct or intracranial hemorrhage. This document has been electronically signed by: Chaz Knott MD on 03/30/2025 22:13:29
--- OUTSIDE RECORDS SUMMARY | 2025-03-30 07:31 | XMS_ITS | Clinical Summary ---
Author Organization [facility] [place] [address] Phone Care Team Providers Care Sand Buffer Name Role Phone Charlene Loco MD Primary Care Provid er Allergies Active Allergy Reactions Criticality Noted Date [...] left breast in female, estrogen receptor positive (CMS/HCC V24, CMS/HCC V28) 09/01/2024 Encounters Date Type Department Care Team Description 02/16/2025 8:48 AM EDT - 02/16/2025 11:59 PM EDT Hospital Encounter [facility] Ultrasound [address] [place] [address] Abnormal findings on diagnostic imaging of breast Discharge Disposition: Home or Self Care 02/16/2025 7:53 AM EDT - 02/16/2025 11:59 PM EDT [facility] [address] [address] Malignant neoplasm of upper-outer quadrant of left breast in female, estrogen receptor positive (CMS/[facility]ER[facility] V24, [facility] V28) Discharge Disposition: Home or Self Care 01/27/2025 7:56 AM EDT - 01/27/2025 11:59 PM EDT Hospital Encounter [facility] Bone Density [address] [place] [address] Other specified disorders of bone density and structure, multiple sites Discharge Disposition: Home or Self Care 01/05/2025 Telephone Breast Care [facility] [address] [address] Dwight De Los Santos MD from Last 3 Months Surgical History Surgery Date Site/Laterality Comments APPENDECTOMY PROCEDURE: MN APPENDEC INDICATED PURPOSE OTH MAJOR PX NOT SPX; COMMENT: laparotomy for ovarian torsion, incidental appendectomy OTHER SURGICAL HISTORY 07/11/2022 Left PROCEDURE: MN MASTECTOMY PARTIAL; COMMENT: Left breast magnetic seed partial mastectomy 07/11/22 BREAST BIOPSY 10/21/2023 - 10/20/2024 Left Medical History Medical History Date Comments Hypothyroidism DX:Hypothyroidis m Hypercholesteremia DX:Hyperchole steremia GERD (gastroesophageal reflux disease) DX:GERD (gastroesophageal reflux disease) Shingles (herpes zoster) polyneuropathy DX:Shingles (herpes zoster) polyneuropathy Breast cancer ([facility] V24, [facility] V28) 06/2022 Family History Medical History Relation Name [...] - Inhaled Oxygen Concentration - - Weight 60.8 kg (134 lb) 02/16/2025 8:07 AM EDT Height 157.5 cm (5' 2 ) 02/16/2025 8:07 AM EDT Body Mass Index 24.51 02/16/2025 8:07 AM EDT Plan of Treatment Upcoming Encounters Date Type Department Care Team (Late st Contact Info) Description 04/08/2025 8:20 AM EDT Office Visit Breast Care [facility] [address] [place] [address] Dwight De Los Santos MD [address] [facility] [address] [place] [address] 08/19/2025 8:00 AM EDT Appointment [facility] Ultrasound [address] [place] [phone] Health Maintenance Due Date Last Done Comments DTaP,Tdap,and Td Vaccines (1 - Tdap) 1959 Pneumococcal Vaccine: 50+ Years (1 of 2 - PCV) 1961 Zoster Vaccines (1 of 2) 1961 RSV Immunization Adult Patients (1 - 1-dose 75+ series) 2017 Cholesterol Screening (Lipid Panel) 09/29/2022 Depression Screening 09/29/2022 Falls Risk Assessment 09/29/2022 Medicare Annual Wellness Visit 09/29/2022 Social Influencers of Health Screening 09/29/2022 Hypertension/CHF/CAD Annual BMP Blood Test 11/24/2023 COVID-19 Vaccine (6 - Pfizer risk ) 03/07/2025 2024, 08/07/2022, 10/10/2021, Additional history exists Osteoporosis Screening (Bone Density Screening) 01/27/2035 01/27/2025, 08/23/2022, 03/07/2018 Influenza Vaccine Completed 2024, , 08/07/2022 HIB [...] age to complete this topic Meningococcal B Vaccine Aged Out No l onger eligible based on patient's age to complete this topic RSV Immunization Patients Under 20 months Aged Out No longer eligible based on patient's age to complete this topic Varicella Vaccines Aged Out No longer eligible based on patient's age to complete this topic Procedures Procedure Name Priority Date/Time Associated Diagnosis Comments MG MAMMO DIGITAL DIAGNOSTIC W BOLIVAR LEFT Routine 02/16/2025 9:23 AM EDT Malignant neoplasm of upper-outer quadrant of left breast in female, estrogen receptor positive (CMS/[facility] V24, [facility] V28) US BREAST LIMITED LEFT Routine 02/16/2025 9:18 AM EDT Abnormal findings on diagnostic imaging of breast BD BONE DENSITY DXA AXIAL SKELETON Routine 01/27/2025 8:15 AM EDT Other specified disorders of bone density and structure, multiple sites from Last 3 Months Results * MG Mammo Digital Diagnostic w Bolivar Left (02/16/2025 9:23 AM EDT) Anatomical Region Laterality Modality Breast Left Mammography 02/16/2025 9:09 AM EDT Impressions 02/16/2025 9:26 AM EDT Hypoechoic area in the left breast consistent with post biopsy changes. ??This is less well-defined than prior study. ??Additional six-month follow-up with ultrasound is recommended. BI-RADS CATEGORY: Mammography: 1 - NEGATIVE Ultrasound: 3 - PROBABLY BENIGN RECOMMENDATIONS: Diagnostic Ultrasound in 6 Months is recommended for the Left Breast. Mammo Location: [facility], [address] [place] [address], [id number], . -------- FINAL REPORT -------- Dictated By: Meena Rose Dictated Date: 02/16/2025 09:09 ET Assigned Physician: Meena Rose Reviewed and Electronically Signed By: Meena Rose Signed Date: 02/16/2025 09:26 ET Workstation ID: [id number] Transcribed By: Self Edit Transcribed Date: 02/16/2025 09:09 ET Narrative 02/16/2025 9:26 AM EDT CLINICAL: 84 years old, Female, presents for 3 month left breast follow-up. ??Patient had tenderness in the of prior biopsy. ??Hypoechoic area was visualized which was thought to represent biopsy site. ??Patient has a history of left breast cancer. COMPARISON: 11/17/2024, 02/26/2024, 08/08/2023, 02/06/2023 ?? FINDINGS: MAMMOGRAPHY TECHNIQUE: Unilateral left MLO and CC views ??were obtained digitally with 3-D mammogram (digital breast tomosynthesis). Computer-aided detection was utilized in evaluation of this exam (CAD). There is no evidence of suspicious mass or architectural distortion. ??No worrisome calcifications are evident. ??There has been no significant change from prior exam(s). ? Stable biopsy marker in the upper inner quadrant. BREAST DENSITY: C - The breasts are heterogeneously dense which may obscure small masses. ULTRASOUND TECHNIQUE: Targeted ultrasound evaluation of the left breast was performed. Again noted is a hypoechoic area in the left breast. ??This is labeled 12 o'clock 4 cm from the nipple to correlate to prior study, however is located at 11 o'clock 2 cm from the nipple. ??Previous biopsy marker is clearly identified at the site. ??This appears slightly less well-defined than prior study. ??However, has not significantly changed. us Dwight De Los Santos MD IMG BI PROCEDURES Final Result * US Breast Limited Left (02/16/2025 9:18 AM EDT) Anatomical Region Laterality Modality Breast Left Ultrasound 02/16/2025 9:09 AM EDT Impressions 02/16/2025 9:26 AM EDT Hypoechoic area in the left breast consistent with post biopsy changes. ??This is less well-defined than prior study. ??Additional six-month follow-up with ultrasound is recommended. BI-RADS CATEGORY: Mammography: 1 - NEGATIVE Ultrasound: 3 - PROBABLY BENIGN RECOMMENDATIONS: Diagnostic Ultrasound in 6 Months is recommended for the Left Breast. Mammo Location: [facility], [address] [place] [address], [id number], . -------- FINAL REPORT -------- Dictated By: Meena Rose Dictated Date: 02/16/2025 09:09 ET Assigned Physician: Meena Rose Reviewed and Electronically Signed By: Meena Rose Signed Date: 02/16/2025 09:26 ET Workstation ID: [id number] Transcribed By: Self Edit Transcribed Date: 02/16/2025 09:09 ET Narrative 02/16/2025 9:26 AM EDT CLINICAL: 84 years old, Female, presents for 3 month left breast follow-up. ??Patient had tenderness in the of prior biopsy. ??Hypoechoic area was visualized which was thought to represent biopsy site. ??Patient has a history of left breast cancer. COMPARISON: 11/17/2024, 02/26/2024, 08/08/2023, 02/06/2023 ?? FINDINGS: MAMMOGRAPHY TECHNIQUE: Unilateral left MLO and CC views ??were obtained digitally with 3-D mammogram (digital breast tomosynthesis). Computer-aided detection was utilized in evaluation of this exam (CAD). There is no evidence of suspicious mass or architectural distortion. ??No worrisome calcifications are evident. ??There has been no significant change from prior exam(s). ? Stable biopsy marker in the upper inner quadrant. BREAST DENSITY: C - The breasts are heterogeneously dense which may obscure small masses. ULTRASOUND TECHNIQUE: Targeted ultrasound evaluation of the left breast was performed. Again noted is a hypoechoic area in the left breast. ??This is labeled 12 o'clock 4 cm from the nipple to correlate to prior study, however is located at 11 o'clock 2 cm from the nipple. ??Previous biopsy marker is clearly identified at the site. ??This appears slightly less well-defined than prior study. ??However, has not significantly changed. us Dwight De Los Santos MD IMG US PROCEDURES Final Result * BD Bone Density DXA Axial Skeleton (01/27/2025 8:15 AM EDT) Anatomical Region Laterality Modality Wrist, Hip, L-spine Bone Densito metry 01/28/2025 11:2 1 AM EDT Impressions 01/28/2025 11:22 AM EDT 1. Osteopenia. ??There has been a decrease of 0.7% in bone mineral density in the lumbar spine since the prior examination of 08/23/2022. ??There has been a decrease of 2.3% in bone mineral density in the right femur and a decrease of 0.4% in bone mineral density in the left femur. 2. FRAX analysis yields a 10-year probability of major osteoporotic fracture of 16.7% and a 10-year probability of hip fracture of 5.4%. Code 30763 -------- FINAL REPORT -------- Dictated By: Nathan Villatoro Dictated Date: 01/28/2025 11:21 ET Assigned Physician: Nathan Villatoro Reviewed and Electronically Signed By: Nathan Villatoro Signed Date: 01/28/2025 11:22 ET Workstation ID: [id number] Transcribed By: Self Edit Transcribed Date: 01/28/2025 11:21 ET Narrative 01/28/2025 11:22 AM EDT HISTORY: ??The patient is an 84-year-old postmenopausal female with clinical concern for metabolic bone disease. FINDINGS: ??Dual energy x-ray absorptiometry of the lumbar spine and femurs is performed. The mean bone mineral density at L1-2 is 1.017 gm/cm2 which is 87% of that of young normals and 110% of that of age matched controls. This yields a T-score of -1.2 and a Z-score of 0.8 which is diagnostic of osteopenia. The mean bone mineral density of the femurs bilaterally is 0.878 gm/cm2 which is 87% of that of young normals and 121% of that of age matched controls. ??This yields a T-score of -1.0 and a Z-score of 1.2 and there is therefore no evidence of osteoporosis or osteopenia here. However, the T-score of the right femoral neck is -2.1 and that of the left femoral neck is -1.6 which is diagnostic of osteopenia. Procedure Note Nathan Villatoro MD - 01/28/2025 HISTORY: The patient is an 84-year-old postmenopausal female withclinical concern for metabolic bone disease. FINDINGS: Dual energy x-ray absorptiometry of the lumbar spine and femursis performed. The mean bone mineral density at L1-2 is 1.017 gm/cm2 whichis 87% of that of young normals and 110% of that of age matched controls.This yields a T-score of -1.2 and a Z-score of 0.8 which is diagnostic ofosteopenia. The mean bone mineral density of the femurs bilaterally is 0.878 gm/gd2yycgo is 87% of that of young normals and 121% of that of age matchedcontrols. This yields a T-score of -1.0 and a Z-score of 1.2 and there istherefore no evidence of osteoporosis or osteopenia here. However, theT-score of the right femoral neck is -2.1 and that of the left femoralneck is -1.6 which is diagnostic of osteopenia. IMPRESSION: 1. Osteopenia. There has been a decrease of 0.7% in bone mineral densityin the lumbar spine since the prior examination of 08/23/2022. There hasbeen a decrease of 2.3% in bone mineral density in the right femur and adecrease of 0.4% in bone mineral density in the left femur. 2. FRAX analysis yields a 10-year probability of major osteoporoticfracture of 16.7% and a 10-year probability of hip fracture of 5.4%. Code 37672 -------- FINAL REPORT -------- Dictated By: Nathan Villatoro Dictated Date: 01/28/2025 11:21 ET Assigned Physician: Nathan Villatoro Reviewed and Electronically Signed By: Nathan Villatoro Signed Date: 01/28/2025 11:22 ET Workstation ID: [id number] Transcribed By: Self Edit Transcribed Date: 01/28/2025 11:21 ET us Charlene Loco MD IMG DXA PROCEDURES F inal Result from Last [address] [place] [address] [place] [address] Advance Directives Documents on File Type Date Recorded Patient Data Science And Iot Manager Expl anation Health Care Decision (hx) 07/12/2022 [...] (hx) 07/12/2022 AD GONGORA DIRECTIVE Care Teams Sand Buffer Relationship Specialty Start Date End Date Charlene Loco MD [address] [place] [address] [address] [place] [address] PCP - General Endocrinology 01/27/25
== END 2025-03-30 07:29 | disposition home or self-care (01) ==
LOC: HO.CT 07:28
PROVIDERS: Visit Provider Registered Nurse
DX: I63.9 Cerebral infarction, unspecified (principal)
CPT/HCPCS: 70450

== ENCOUNTER → 2025-03-30 07:30 | Outpatient (BNV) | payer OTHER, SELFPAY | PROVIDERS: Visit Provider Student in an Organized Health Care Education/Training Program | DX: I63.9 Cerebral infarction, unspecified (principal) | CPT/HCPCS: 70450 ==

== ENCOUNTER 2025-05-17 12:52 | Outpatient (AMB) | payer OTHER, SELFPAY ==
--- NOTE | 2025-05-17 13:10 | A.OFFVIS_ITS ---
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 She has some residual numbness in the left thumb and pinky, along with some weakness in the left hand. She was doing about the same. Balance was unsteady at times, but no falls. She was doing exercise classes 3 days/week and walking 5 days/week. Ongoing numbness to left hand, especially to thumb and pinky. She was dropping things from left hand still. No numbness, tingling, or weakness to RUE.?She still had occasional feeling like headache would start if she laid her head back on something firm for period of time. No tenderness to touch or palpation. No neck pain. No jaw pain or claudication. Review of Systems Const Denies chills, Denies daytime sleepiness, Reports difficulty sleeping, Denies fatigue, Denies fever(s), Denies frequent falls, Reports headache(s), Denies increased appetite, Denies poor appetite, Denies snoring, Denies weakness, Denies weight gain and Denies weight loss Eyes Denies loss of vision ENT Denies vertigo, Reports dizziness, Reports headache(s) and Denies neck pain Card Denies chest pain at rest, Denies chest pain with activity, Denies syncope, Denies leg edema, Denies palpitations, Denies dyspnea and Denies dyspnea on exertion Resp Denies cough, Denies dyspnea, Denies dyspnea on exertion and Denies snoring GI Denies abdominal pain, Denies constipation, Denies heartburn, Denies diarrhea and Denies nausea Denies urinary frequency, Denies urinary incontinence and Denies urinary urgency Musc Reports abnormal gait (balance difficulty), Denies back pain, Denies myalgias, Reports arthralgias, Denies neck pain, Reports numbness and Reports tingling Neuro Reports abnormal gait (balance difficulty), Denies vertigo, Reports dizziness, Denies syncope, Denies frequent falls, Reports headache(s), Denies lack of coordination, Denies loss of vision, Denies memory loss, Reports numbness, Denies Other visual disturbances, Denies restless legs, Denies seizure-like activity, Reports tingling, Denies paresthesias, Denies tremor(s) and Denies weakness Psych Denies anxiety, Denies depression, Denies auditory hallucinations, Denies memory loss and Denies visual hallucinations Endo Denies fatigue and Denies palpitations Physical Exam Vital Signs: Last Vital Signs Pulse 77 05/17/25 13:27 BP 136/76 05/17/25 13:27 Const Other: General Appearance:? normal, in no acute distress. Heart:? S1, S2 normal, no murmurs. Lungs:? clear anteriorly and posteriorly. Musculoskeletal:? normal. Extremities:? no edema. Psych:? alert, oriented, cognitive function intact, cooperative with exam. Neuro Other: Abnormal Neurological Findings:?5-/5 L deltoid, 5-/5 L tongue binder, 5-/5 L finger spread. 5-/5 R ileopsoas. Mental Status: alert and oriented X 3. Normal attention, orientation, memory, and affect. Cranial Nerves: Pupils are equal, round, and reactive to light. External ocular muscles are intact. Visual monsivais are full, no ptosis. Face is symmetrical, no facial weakness or droop. Facial sensations are normal. Tongue protrudes in midline. Palate elevates symmetrically. Shoulder shrugging is normal Motor Examination: As above, otherwise normal muscle tone, bulk and strength. No atrophy or fasciculations. No drift of the extended upper extremities. DTR 2+. Plantars are flexor. Straight Leg Raisin degrees. Sensory Exam: Normal light touch, temperature, pinprick, vibration, and joint- position sensations. Rhomberg sign is absent. Coordination: No ataxia. No titubation. Dnivzc-ye-zkhi, rwkf-gitw-sgix test, and rapid alternating movements were normal. Gait Exam: Within normal limits. Cerebellar Signs: Nciraz-bl-jgvf and utin-tz-licw is normal. No dysdiadochokinesia. Extrapyramidal System: No tremor, rigidity with normal facial expressions. No bradykinesia. No bradyphrenia. Normal arm swing and posture. No propulsion or retropulsion. Speech: Normal. No dysphasia or dysarthria. Results Reviewed Results Reviewed: [address] [address] [address] Scan Report Signed Patient: Jackie Nava MR#: [id number] : 1940 Acct:[id number] Age/Sex: 84 / F ADM Date: 03/30/25 Loc: HO.CT Attending Dr: Mckayla Sanchez CNP Ordering Physician: Mckayla Sanchez CNP Date of Service: 03/30/25 Procedure(s): CT head/brain wo IV con Accession Number(s): [id number] cc: Mckayla Sanchez CNP~ Report Number: [id number]: Total DLP = 761.00 mGy-cm CLINICAL HISTORY: STROKE CT head without contrast Comparison: None Findings: No intra-axial mass, midline shift, hydrocephalus, or acute hemorrhage. Mild atrophy-like change or white matter disease. The visualized paranasal sinuses and mastoid air cells are normal. The orbits are unremarkable. There is no acute fracture. IMPRESSION: 1. No evidence of acute territorial infarct or intracranial hemorrhage. This document has been electronically signed by: Chaz Knott MD on 03/30/2025 22:13:29 --- US Carotid Duplex 12/2024: Normal ultrasound of the right internal carotid artery. Findings consistent with 0-49% stenosis of the left internal carotid artery. Assessment & Plan Assessment & Plan (1) History of stroke: Code(s): Z86.73 - Personal history of transient ischemic attack (TIA), and cerebral infarction without residual deficits Category: Medical Plan: CT results reviewed, no acute findings. Control blood pressure. Continue statin and low dose aspirin. Continue to stay physically active. She was doing exercise class 3x/week and was not interested in PT at this time. (2) Dizziness: Code(s): R42 - Dizziness and giddiness Category: Medical (3) Tension headache: Code(s): G44.209 - Tension-type headache, unspecified, not intractable Category: Medical Plan . Coding Level of Care Code Est Pt Level 4 (95148) Diagnoses History of stroke Z86.73 Dizziness R42 Tension headache G44.209
[2025-05-17 13:27] VITALS: BP 136/76; PULSE 77
--- OUTSIDE RECORDS SUMMARY | 2025-05-17 13:33 | XMS_ITS | Continuity of Care Document ---
Author Organization [facility] Address [address] [place] [address] Phone [phone] Care Team Providers Care Management Rep Name Role Phone Jose Manuel Reyes M.D. Care Team Information Rece iver [phone] Fareed Figueroa Care Team Information Receive r [phone] Problems Active Problems Provider Date Osteoarthritis Jose [...] Social History Type Date Description Comments Sex Female Sex Unknown Lives With Alone ETOH Use Occasionally consumes alcoho l Tobacco Use Start: Unknown Patient has never smoked Smoking Status Reviewed: 01/12/25 Patient has never sm oked Allergies and adverse reactions Active Allergies Criticality Reaction Severity Comments Date Codeine Unable to assess criticality 03/07/2023 Sulfamethoxazole Unable to assess criticality 03/07/2023 Amoxicillin Unable to assess criticality 03/07/2023 Medications Active Medications SIG Qnty Indications Order ing Provider Date Atorvastatin [id number] Tablets 1 tab by mouth every day 90jayson Loco M.D. 07/30/[address] 1 by mouth every day Jose Manuel Reyes M.D. 03/07/2023 Amlodipine Besylate2.5mg Tablets Take 1 Tablet By Mouth Every Day 90jayson Loco M.D. 01/30/2023 Levothyroxine [id number] Tablets Take 1 Tablet By Mouth Every Day as Directed 90tanelida Loco M.D. [id number] Capsules 1 by mouth every day Unknown Vital Signs Date Vital Result Comment 01/12/2025 9:22am BP Systolic 130 mmHg BP Diastolic 74 mmHg Heart Rate 76 /min Height 62 inches 5'2 Weight 132.12 lb BMI (Body Mass Index) 24.2 kg/m2 Results Test Acquired Date Facility Test Result H/L Range Note Lipid Panel 02/05/2025 [facility] Cholesterol, Total 165 mg/dL 100-199 1 Triglycerides 143 mg/dL 0-149 HDL Cholesterol 52 mg/dL >39 VLDL Cholestero l [place] 25 mg/dL 5-40 LDL Chol Calc ([facility]) 88 mg/dL 0-99 LDL Calc Comment: TNP Urinalysis, Complete 02/05/2025 [facility] Specific [place] 1.013 1.005-1.0 30 pH 7.0 5.0-7.5 Urine-Color Yellow Yellow Appearance Clear Clear WBC Esterase 2+ Abnormal Negative Protein Trace Negative/ Trace Glucose Negative Negative Ketones Negative Negative Occult Blood Negative Negative Bilirubin Negative Negative Urobilinogen,Se m i-Qn 1.0 mg/dL 0.2-1.0 Nitrite, Urine Negative Negative Microscopic Examination See below: 2 Microscopic Examination TNP WBC 6-10 /hpf Abnormal 0 - 5 RBC 0-2 /hpf 0 - 2 Epithelial Cell s (non renal) 0-10 /hpf 0 - 10 Epithelial Cell s (renal) TNP Casts None seen /lpf None seen Cast Type TNP Crystals TNP Crystal Type TNP Mucus Threads TNP Bacteria Many Abnormal None seen/Few Yeast TNP Trichomonas TNP Comment TNP CBC With Differential/Per telet 02/05/2025 [facility] WBC 7.7 x10E3/uL 3.4-10.8 RBC 4.56 x10E6/uL 3.77-5.28 Hemoglobin 14.8 g/dL 11.1-15.9 Hematocrit 44.2 % 34.0-46.6 MCV 97 fL 79-97 MCH 32.5 pg 26.6-33.0 MCHC 33.5 g/dL 31.5-35.7 RDW 12.0 % 11.7-15.4 Platelets 262 x10E3/uL 150-450 Neutrophils 54 % Not Estab. Lymphs 30 % Not Estab. Monocytes 10 % Not Estab. Eos 5 % Not Estab. Basos 1 % Not Estab. Immature Cells TNP Neutrophils (Absolute) 4.1 x10E3/uL 1.4-7.0 Lymphs (Absolute) 2.3 x10E3/uL 0.7-3.1 Monocytes(Absol u te) 0.7 x10E3/uL 0.1-0.9 Eos (Absolute) 0.4 x10E3/uL 0.0-0.4 Baso (Absolute) 0.1 x10E3/uL 0.0-0.2 Immature Granulocytes 0 % Not Estab. Immature Grans (Abs) 0.0 x10E3/uL 0.0-0.1 NRBC TNP Hematology Comments: TNP TSH Rfx on Abnormal to Free T4 02/05/2025 [facility] TSH Rfx on Abnormal to Free T4 2.530 uIU/mL 0.450-4.5 00 Thyrotropin Receptor Ab, Serum 02/05/2025 [facility] Thyrotropin Receptor Ab, Serum <1.10 IU/L 0.00-1.75 Thyroid Peroxidase (Tpo) Ab 02/05/2025 [facility] Thyroid Peroxidase (Tpo) Ab 14 IU/mL 0-34 Thyroid Stim Immunoglobulin 02/05/2025 [facility] Thyroid Stim Immunoglobulin 0.10 IU/L 0.00-0.55 Comp. Metabolic Panel (14) 02/05/2025 [facility] Glucose 110 mg/dL High 70-99 BUN 13 mg/dL 8-27 Creatinine 0.70 mg/dL 0.57-1.00 eGFR 86 mL/min/1. 73 >59 BUN/Creatinine Ratio 19 12-28 Sodium 138 mmol/L 134-144 Potassium 4.7 mmol/L 3.5-5.2 Chloride 100 mmol/L 96-106 Carbon Dioxide, Total 25 mmol/L 20-29 Calcium 9.0 mg/dL 8.7-10.3 Protein, Total 6.3 g/dL 6.0-8.5 Albumin 4.1 g/dL 3.7-4.7 Globulin, Total 2.2 g/dL 1.5-4.5 Bilirubin, Total 0.6 mg/dL 0.0-1 .2 Alkaline Phosphatase 82 IU/L 44-121 Ast (Sgot) 23 IU/L 0-40 Alt (SGPT) 13 IU/L 0-32 Thyroxine (T4) Free, Direct 08/03/2024 [facility] Thyroxine (T4) Free, Direct 1.81 ng/dL High 0.82-1.77 TSH 08/03/2024 [facility] TSH 2.560 uIU/mL 0.450-4.5 00 Lipid Panel 08/03/2024 [facility] Cholesterol, Total 172 mg/dL 100-199 Triglycerides 138 mg/dL 0-149 HDL Cholesterol 48 mg/dL >39 VLDL Cholestero l Tucker 24 mg/dL 5-40 LDL Chol Calc ([facility]) 100 mg/dL High 0-99 LDL Calc Comment: TNP Alt (SGPT) 08/03/2024 [facility] Alt (SGPT) 31 IU/L 0-32 Ast (Sgot) 08/03/2024 [facility] Ast (Sgot) 36 IU/L 0-40 Comp. Metabolic Panel (14) 01/29/2024 [facility] Glucose 104 mg/dL High 70-99 BUN 15 mg/dL 8-27 Creatinine 0.84 mg/dL 0.57-1.00 eGFR 70 mL/min/1. 73 >59 BUN/Creatinine Ratio 18 12-28 Sodium 138 mmol/L 134-144 Potassium 4.6 mmol/L 3.5-5.2 Chloride 101 mmol/L 96-106 Carbon Dioxide, Total 24 mmol/L 20-29 Calcium 8.8 mg/dL 8.7-10.3 Protein, Total 6.3 g/dL 6.0-8.5 Albumin 4.0 [...] Differential/Per telet 01/29/2024 [facility] WBC 8.1 x10E3/uL 3.4-10.8 RBC 4.69 x10E6/uL 3.77-5.28 Hemoglobin 14.8 g/dL 11.1-15.9 Hematocrit 44.1 % 34.0-46.6 MCV 94 fL 79-97 MCH 31.6 pg 26.6-33.0 MCHC 33.6 g/dL 31.5-35.7 RDW 12.4 % 11.7-15.4 Platelets 286 x10E3/uL 150-450 Neutrophils 56 % [...] TSH+Free T4 01/29/2024 [facility] TSH 2.620 uIU/mL 0.450-4.5 00 T4,Free(Direct) 1.94 ng/dL High 0.82-1.77 Culture Urine 12/02/2023 [facility] Specimen Description CLEAN CATCH (URI <SEE NOTE> 3 Special Requests NONE Culture >100,000 COL/ML <SEE NOTE> Abnormal 4 Report Status FINAL 4 5 Comprehensive Metabolic Panl 07/25/2023 [facility] Glucose 107 mg/dL High (70-99) BUN 14 mg/dL (8-23) Creatinine 0.8 mg/dL (0.5-1.0) Sodium 136 mmol/L (133-145) Potassium 4.4 mmol/L (3.6-5.2) Chloride 101 mmol/L (98-107) Bicarbonate 27 mmol/L (22-29) Anion Gap 8 (4-17) Albumin 4.1 GM/DL (3.4-4.8) Calcium 8.9 mg/dL (8.6-10.5 ) Bilirubin,Total 0.7 mg/dL (0-1.2 ) Total Protein 6.4 GM/DL (6.2-8.2 ) Ag Ratio 1.8 Ast 22 U/L (0-32) Alk Phos 100 U/L (35-104) Alt 17 U/L (0-33) Estimated GFR Creatinine 70 ML/MIN/1. 73M2 6 Lipid Panel 07/25/2023 [facility] Cholesterol, Total 147 mg/dL (<200) Triglyceride 108 mg/dL (<150) HDL Chol 47 mg/dL (>39) LDL Cholesterol , Calculated 78 mg/dL (0-130) Non HDL Cholesterol (Calc) 100 mg/dL (<160) Complete Abc With Diff 07/25/2023 [facility] WBC 8.3 K/MM3 (4.0-11.0 ) RBC 4.33 M/MM3 (4.20-5.4 0) HGB 13.5 GM/DL (11.7-15. 5) HCT 41.6 % (35.7-45. 8) MCV 96.1 FL (80.0-100 .0) MCH 31.2 pg (27.0-34. 0) MCHC 32.5 g/dL Low (33.0-37. 0) PLT 257 K/MM3 (150-460) RDW-SD 45.6 FL (<47.0) MPV 11.0 FL (9.4-12.4 ) Automated NRBC 0.0 #/100WBC' S Abs. NRBC 0.0 K/MM3 Neut # 4.9 K/MM3 (1.3-7.0) Lymph # 2.1 K/MM3 (0.8-3.1) [place]# 0.8 K/MM3 (0.4-0.9) Eo # 0.5 K/MM3 High (0.0-0.4) Baso # 0.1 K/MM3 (0.0-0.1) Abs. Imm Gran 0.0 K/MM3 Neut 58.4 % (44-76) Lymph 24.9 % (15-43) Monocyte 9.4 % (4.5-10.5 ) Eo 5.7 % (0-6) Baso 1.2 % (0-2) Imm Gran 0.4 % TSH With Reflex To FT4 07/25/2023 [facility] TSH With Reflex To FT4 2.13 uIU/mL (0.4-4.2) Comprehensive Metabolic Panl 07/17/2022 [facility] Glucose 102 mg/dL High (70-99) BUN 16 mg/dL (8-23) Creatinine 0.9 mg/dL (0.5-1.0) Sodium 139 mmol/L (133-145) Potassium 4.4 mmol/L (3.6-5.2) Chloride 101 mmol/L (98-107) Bicarbonate 27 mmol/L (22-29) Anion Gap 11 (4-17) Albumin 4.2 GM/DL (3.4-4.8) Calcium 9.0 mg/dL (8.6-10.5 ) Bilirubin,Total 0.5 mg/dL (0-1.2 ) Total Protein 6.4 GM/DL (6.2-8.2 ) Ag Ratio 1.9 Ast 14 U/L (0-32) Alk Phos 80 U/L (35-104) Alt 9 U/L (0-33) Estimated GFR Creatinine 69 ML/MIN/1. 73M2 7 Lipid Panel 07/17/2022 [facility] Cholesterol, Total 204 mg/dL High (<200) Triglyceride 143 mg/dL (<150) HDL Chol 53 mg/dL (>39) LDL Cholesterol , Calculated 122 mg/dL (0-130) Non HDL Cholesterol (Calc) 151 mg/dL (<160) TSH 07/17/2022 [facility] TSH 3.91 uIU/mL (0.4-4.2) 1 TO BE DONE AFTER 410 25 2 Microscopic was sil cated and was performed. 3 CLEAN CATCH (URINE) 4 the [employer] [address] system 5 ORGANISM >100,000 CO L/ML ESCHERICHIA COLI These AST results were performed on the [employer] 2 ID and AST system METHOD MIN. INHIB. CONC. (MCG/ML) AMPICILLIN SUSCEPTIBLE AMPICILLIN/SULBACTAM SUSCEPTIBLE CEFAZOLIN SUSCEPTIBLE CEFEPIME SUSCEPTIBLE CEFTRIAXONE SUSCEPTIBLE CIPROFLOXACIN RESISTANT ERTAPENEM SUSCEPTIBLE GENTAMICIN SUSCEPTIBLE LEVOFLOXACIN RESISTANT NITROFURANTOIN SUSCEPTIBLE PIPERACILLIN/TAZOBAC SUSCEPTIBLE TRIMETH/SULFAMETHOX SUSCEPTIBLE 6 Creatinine based est imated glomerular filtration (eGFR) in adults is calculated using the [employer] recommended 2020 CKD-EPI equation. Estimates GFR from serum creatinine, age and sex. 7 Creatinine based est imated glomerular filtration (eGFR) in adults is calculated using the [employer] recommended 2020 CKD-EPI equation. Estimates GFR from serum creatinine, age and sex. Procedures Date Code Description Status 01/12/2025 42715 Electrocardiogram Complete C ompleted Medical Devices Description No Information Available Encounters Type Date Location Provider Dx Diagnosis Office Visit 01/12/2025 9:15a Main Office SUE Brenner Z00.00 Encntr for ge neral adult medical exam w/o abnormal findings I10 Essential (primary) hypertension E03.9 Hypothyroidism, unsp ecified C50.912 Malignant neoplasm o f unspecified site of left female breast I63.9 Cerebral infarction, unspecified E78.00 Pure hypercholestero lemia, unspecified Assessments Date Code Description Provider 01/12/2025 Z00.00 Encounter for ge neral adult medical examination without abnormal findings SUE Brenner 01/12/2025 I10 Essential (primary) hyperten jessica SUE Brenner 01/12/2025 E03.9 Hypothyroidism, unspecified SUE Brenner 01/12/2025 C50.912 Carcinoma of breast SUE Diaz 01/12/2025 I63.9 Cerebrovascular accident SUE Carrington 01/12/2025 E78.00 Hypercholesterolemia SUE Brenner Plan of Treatment Future Appointment(s):* 07/16/2025 9:00 am - Katie Mejía [employer] at Main Office 01/12/2025 - SUE Brenner* Z00.00 Encounter for general adult medical examination without abnormal findings * I10 Essential (primary) hypertension * E03.9 Hypothyroidism, unspecified * C50.912 Carcinoma of breast * I63.9 Cerebrovascular accident * E78.00 Hypercholesterolemia Functional Status Description No Information Available Mental Status Description No Information Available Referrals Refer to Dr Reason for Referral Status Appt Reinier Lovell MD COLONOSCOPY DUE ON 09/06/2022 Rev iewed Complete 09/06/[address] [place] [address] [address] [place] [address] [phone]
--- OUTSIDE RECORDS SUMMARY | 2025-05-17 13:33 | XMS_ITS | Clinical Summary ---
Author Organization [facility] [place] [address] Phone Care Team Providers Care Student Services Vice President Name Role Phone Charlene Loco MD Primary [...] receptor positive (CMS/HCC V24, CMS/HCC V28) 09/01/2024 Right thalamic stroke (CMS/HCC V24, CMS/HCC V28) 12/19/2012 Overview (04/08/2025): Right thalamic stroke 01/02/2023. GERD (gastroesophageal reflux disease) Overview (04/08/2025): DX:GERD (gastroesophageal reflux disease) Hypothyroidism Overview (04/08/2025): DX:Hypothyroidism Hypercholesteremia Overview (04/08/2025): DX:Hypercholesteremia Encounters Date Type Department Care Team Description 05/05/[address] [address] Dwight De Los Santos MD 04/08/2025 8:20 AM EDT Office Visit [address] [address] Dwight De Los Santos MD Malignant neoplasm of upper-outer quadrant of left breast in female, estrogen receptor positive ([facility] V24, [facility] V28) (Primary Dx) 02/16/2025 8:48 AM EDT - 02/16/2025 11:59 PM EDT Hospital Encounter [facility] Ultrasound [address] [place] [phone] Abnormal findings on diagnostic imaging of breast Discharge Disposition: Home or Self Care 02/16/2025 7:53 AM EDT - 02/16/2025 11:59 PM EDT Hospital Encounter [facility] [address] [address] Malignant neoplasm of upper-outer quadrant of left breast in female, estrogen receptor positive (CMS/HCC V24, CMS/[facility] V28) Discharge Disposition: Home or Self Care from Last 3 Months Surgical History Surgery Date Site/Laterality Comments APPENDECTOMY PROCEDURE: UT APPENDEC INDICATED PURPOSE OTH MAJOR PX NOT SPX; COMMENT: laparotomy for ovarian torsion, incidental appendectomy OTHER SURGICAL HISTORY 07/11/2022 Left PROCEDURE: UT MASTECTOMY PARTIAL; COMMENT: Left breast magnetic seed partial mastectomy 07/11/22 BREAST BIOPSY 10/21/2023 - 10/20/2024 Left Medical History Medical History Date Comments Hypothyroidism DX:Hypothyroidis m Hypercholesteremia DX:Hyperchole steremia GERD (gastroesophageal reflux disease) DX:GERD (gastroesophageal reflux disease) Shingles (herpes zoster) polyneuropathy DX:Shingles (herpes zoster) polyneuropathy Breast cancer ([facility] V24, [facility] V28) 06/2022 Right thalamic stroke ([facility]/ CC V24, [facility] V28) 01/02/2023 Right thalamic stroke 3 Family History Medical History Relation Name Comments [...] Sign Reading Time Taken Comments Blood Pressure 130/79 04/08/2025 8:23 AM EDT Pulse 75 04/08/2025 8:23 AM EDT Temperature 36.3 C (97.4 F) 04/08/2025 8:23 AM EDT Respiratory Rate - - Oxygen Saturation - - Inhaled Oxygen Concentration - - Weight 60.3 kg (133 lb) 04/08/2025 8:23 AM EDT Height 157.5 cm (5' 2 ) 02/16/2025 8:07 AM EDT Body Mass Index 24.33 02/16/2025 8:07 AM EDT Plan of Treatment Upcoming Encounters Date Type Department Care Team (Late st Contact Info) Description 08/19/2025 8:00 AM EDT Appointment [facility]ound [address] [place] [address] 10/12/2025 8:00 AM EST Office Visit [facility] [address] [place] [address] Dwight De Los Santos MD [address] [place] [address] Health Maintenance Due Date Last Done Comments DTaP,Tdap,and Td Vaccines (1 - Tdap) 1959 Pneumococcal Vaccine: 50+ Years (1 of 2 - PCV) 1959 Zoster Vaccines (1 of 2) 1961 RSV Immunization Adult Patients (1 - 1-dose 75+ series) 2017 Cholesterol Screening (Lipid Panel) 09/29/2022 Falls Risk Assessment 09/29/2022 Medicare Annual Wellness Visit 09/29/2022 Social Influencers of Health Screening 09/29/2022 Hypertension/CHF/CAD Annual BMP Blood Test 11/24/2023 Depression Screening 10/21/2024 COVID-19 Vaccine (6 - Pfizer risk 2023- season) 2025 2024, 08/07/2022, 10/10/2021, Additional history exists Influenza Vaccine (#1) 2025 , 10/25/2023, 08/07/2022 Osteoporosis Screening (Bone Density Screening) 01/27/2035 01/27/2025, 08/23/2022, 03/07/2018 HIB Vaccines Aged Out No longer eligi [...] left breast in female, estrogen receptor positive ([facility] V24, [facility] V28) US BREAST LIMITED LEFT Routine 02/16/2025 9:18 AM EDT Abnormal findings on diagnostic imaging of breast BD BONE DENSITY DXA AXIAL SKELETON Routine 01/27/2025 8:15 AM EDT Other specified disorders of bone density and structure, multiple sites from Last 3 Months or Most Recently Relevant to Health Maintenance Results * MG Mammo Digital Diagnostic w [place] Left (02/16/2025 9:23 AM EDT) Anatomical Region Laterality Modality Breast Left Mammography 02/16/2025 9:09 AM EDT Impressions 02/16/2025 9:26 AM EDT Hypoechoic area in the left breast consistent with post biopsy changes. This is less well-defined than prior study. Additional six-month follow-up with ultrasound is recommended. BI-RADS CATEGORY: Mammography: 1 - NEGATIVE Ultrasound: 3 - PROBABLY BENIGN RECOMMENDATIONS: Diagnostic Ultrasound in 6 Months is recommended for the Left Breast. Mammo Location: [facility], [address] [place] [address], [id number], . -------- FINAL REPORT -------- Dictated By: Meena Rose Dictated Date: 02/16/2025 09:09 ET Assigned Physician: Meena Rose Reviewed and Electronically Signed By: Meena Rose Signed Date: 02/16/2025 09:26 ET Workstation ID: [id number] Transcribed By: Self Edit Transcribed Date: 02/16/2025 09:09 ET Narrative 02/16/2025 9:26 AM EDT CLINICAL: 84 years old, Female, presents for 3 month left breast follow-up. Patient had tenderness in the of prior biopsy. Hypoechoic area was visualized which was thought to represent biopsy site. Patient has a history of left breast cancer. COMPARISON: 11/17/2024, 02/26/2024, 08/08/2023, 02/06/2023 FINDINGS: MAMMOGRAPHY TECHNIQUE: Unilateral left MLO and CC views were obtained digitally with 3-D mammogram (digital breast tomosynthesis). Computer-aided detection was utilized in evaluation of this exam (CAD). There is no evidence of suspicious mass or architectural distortion. No worrisome calcifications are evident. There has been no significant change from prior exam(s). Stable biopsy marker in the upper inner quadrant. BREAST DENSITY: C - The breasts are heterogeneously dense which may obscure small masses. ULTRASOUND TECHNIQUE: Targeted ultrasound evaluation of the left breast was performed. Again noted is a hypoechoic area in the left breast. This is labeled 12 o'clock 4 cm from the nipple to correlate to prior study, however is located at 11 o'clock 2 cm from the nipple. Previous biopsy marker is clearly identified at the site. This appears slightly less well-defined than prior study. However, has not significantly changed. us Dwight De Los Santos MD IMG BI PROCEDURES Final Result * US Breast Limited Left (02/16/2025 9:18 AM EDT) Anatomical Region Laterality Modality Breast Left Ultrasound 02/16/2025 9:09 AM EDT Impressions 02/16/2025 9:26 AM EDT Hypoechoic area in the left breast consistent with post biopsy changes. This is less well-defined than prior study. Additional six-month follow-up with ultrasound is recommended. BI-RADS CATEGORY: Mammography: 1 - NEGATIVE Ultrasound: 3 - PROBABLY BENIGN RECOMMENDATIONS: Diagnostic Ultrasound in 6 Months is recommended for the Left Breast. Mammo Location: [facility], [address] [place] [address], [id number], . -------- FINAL REPORT -------- Dictated By: Meena Rose Dictated Date: 02/16/2025 09:09 ET Assigned Physician: Meena Rose Reviewed and Electronically Signed By: Meena Rose Signed Date: 02/16/2025 09:26 ET Workstation ID: [id number] Transcribed By: Self Edit Transcribed Date: 02/16/2025 09:09 ET Narrative 02/16/2025 9:26 AM EDT CLINICAL: 84 years old, Female, presents for 3 month left breast follow-up. Patient had tenderness in the of prior biopsy. Hypoechoic area was visualized which was thought to represent biopsy site. Patient has a history of left breast cancer. COMPARISON: 11/17/2024, 02/26/2024, 08/08/2023, 02/06/2023 FINDINGS: MAMMOGRAPHY TECHNIQUE: Unilateral left MLO and CC views were obtained digitally with 3-D mammogram (digital breast tomosynthesis). Computer-aided detection was utilized in evaluation of this exam (CAD). There is no evidence of suspicious mass or architectural distortion. No worrisome calcifications are evident. There has been no significant change from prior exam(s). Stable biopsy marker in the upper inner quadrant. BREAST DENSITY: C - The breasts are heterogeneously dense which may obscure small masses. ULTRASOUND TECHNIQUE: Targeted ultrasound evaluation of the left breast was performed. Again noted is a hypoechoic area in the left breast. This is labeled 12 o'clock 4 cm from the nipple to correlate to prior study, however is located at 11 o'clock 2 cm from the nipple. Previous biopsy marker is clearly identified at the site. This appears slightly less well-defined than prior study. However, has not significantly changed. us Dwight De Los Santos MD IMG US PROCEDURES Final Result * BD Bone Density DXA Axial Skeleton (01/27/2025 8:15 AM EDT) Anatomical Region Laterality Modality Wrist, Hip, L-spine Bone Densito metry 01/28/2025 11:2 1 AM EDT Impressions 01/28/2025 11:22 AM EDT 1. Osteopenia. There has been a decrease of 0.7% in bone mineral density in the lumbar spine since the prior examination of 08/23/2022. There has been a decrease of 2.3% in bone mineral density in the right femur and a decrease of 0.4% in bone mineral density in the left femur. 2. FRAX analysis yields a 10-year probability of major osteoporotic fracture of 16.7% and a 10-year probability of hip fracture of 5.4%. Code 45043 -------- FINAL REPORT -------- Dictated By: Nathan Villatoro Dictated Date: 01/28/2025 11:21 ET Assigned Physician: Nathan Villatoro Reviewed and Electronically Signed By: Nathan Villatoro Signed Date: 01/28/2025 11:22 ET Workstation ID: [id number] Transcribed By: Self Edit Transcribed Date: 01/28/2025 11:21 ET Narrative 01/28/2025 11:22 AM EDT HISTORY: The patient is an 84-year-old postmenopausal female with clinical concern for metabolic bone disease. FINDINGS: Dual [...] 121% of that of age matched controls. This yields a T-score of -1.0 and [...] density of the femurs bilaterally is 0.878 gm/eg4qwxyt is 87% of that of young normals [...] probability of hip fracture of 5.4%. Code 38329 -------- FINAL REPORT -------- Dictated By: Nathan Villatoro Dictated Date: 01/28/2025 11:21 ET Assigned Physician: Nathan Villatoro Reviewed and Electronically Signed By: Nathan Villatoro Signed Date: 01/28/2025 11:22 ET Workstation ID: [id number] Transcribed By: Self Edit Transcribed Date: 01/28/2025 11:21 ET Charlene Loco MD IMG DXA PROCEDURES F inal Result from Last 3 Months or Most Recently Relevant to Health Maintenance [place] [address] [employer] MEDICARE Advance Directives Documents on File Type Date Recorded Patient Payroll Processor Expl anation Health Care Decision (hx) 07/12/2022 [...] (hx) 07/12/2022 AD GONGORA DIRECTIVE Care Teams Student Services Vice President Relationship Specialty Start Date End Date Charlene Loco MD [address] [place] [address] [address] [place] [address] PCP - General Endocrinology 01/27/25
--- OUTSIDE RECORDS SUMMARY | 2025-05-17 13:33 | XMS_ITS | Clinical Summary ---
Author Organization [facility] Address [address] [place] [address] Care Team Providers Care Needle Setter Name Role Phone Jose Manuel Ryees MD Primary Care Provider [phone] Allergies Active Allergy Reactions Criticality Noted Date [...] 74 01/31/2023 9:00 AM EDT Temperature 37.2 C (99 F) 01/31/2023 9:00 AM EDT Respiratory Rate - [...] 1-dose 75+ series) 2017 Influenza Vaccine (#1) 2025 Hepatitis B Vaccines Aged Out No long er eligible based on patient's age to complete this topic RSV Ped < 20 months Aged Out No longe r eligible based on patient's age to complete this topic Care Teams Needle Setter Relationship Specialty Start Date End Date Jose Manuel Reyes MD [address] [place] [address] [address] [place] [address] PCP - General Renal Technician 07/06/22
== END 2025-05-17 13:29 | disposition home or self-care (01) ==
LOC: HO.HSM 12:52
PROVIDERS: PCP Internal Medicine Endocrinology, Diabetes & Metabolism; Referring Provider Internal Medicine Endocrinology, Diabetes & Metabolism; Visit Provider Registered Nurse
DX: Z86.73 Personal history of transient ischemic attack (TIA), and cerebral infarction without residual deficits (principal); R42 Dizziness and giddiness; G44.209 Tension-type headache, unspecified, not intractable
CPT/HCPCS: 99214